=== PATIENT | female | born 1995 | race Two or more races ===

== ENCOUNTER 2023-02-08 13:18 | Inpatient (IN) | payer OTHER ==
[~2023-02-08] VITALS: Ht 160 cm; Wt 70.8 kg
[2023-02-08] MEDS ORDERED: FAMOTIDINE20 MG PO (13:36)
[2023-02-08] MEDS ORDERED: REGLAN5 MG/5 ML PO (13:36)
[2023-02-08] MEDS ORDERED: PRENATAL TABLE1 EAC4 PO (13:37)
== END 2023-02-10 12:35 | disposition home or self-care (01) | DRG 807 ==
LOC: OB/GYN 13:18 → LDR 13:18 → OB/GYN 20:24 → LDR 02-12 15:23
PROVIDERS: ADMIT Obstetrics & Gynecology; ATTEND Obstetrics & Gynecology
PROC: 10E0XZZ Delivery of Products of Conception, External Approach (ICD-10-PCS; principal; 2023-02-08)
PROC: 0UQG7ZZ Repair Vagina, Via Natural or Artificial Opening (ICD-10-PCS; 2023-02-08)
PROC: 4A1HXCZ Monitoring of Products of Conception, Cardiac Rate, External Approach (ICD-10-PCS; 2023-02-08)
DX: O71.4 Obstetric high vaginal laceration alone (principal); Z37.0 Single live birth; Z3A.38 38 weeks gestation of pregnancy; Z20.822 Contact with and (suspected) exposure to COVID-19

== ENCOUNTER 2024-08-10 09:14 | Outpatient (CLI) | payer OTHER ==
[~2024-08-10 09:14] MED LIST: FAMOTIDINE20 MG PO; PRENATAL TABLE1 EAC4 PO; REGLAN5 MG/5 ML PO
== END 2024-08-10 10:16 | disposition home or self-care (01) ==
LOC: NST 09:14
PROVIDERS: ATTEND Obstetrics & Gynecology
DX: Z34.83 Encounter for supervision of other normal pregnancy, third trimester (principal)

== ENCOUNTER 2024-09-02 13:00 | Inpatient (IN) | payer OTHER ==
[~2024-09-02] VITALS: Ht 160 cm; Wt 70.8 kg
[2024-09-10] VITALS (9 sets, daily range): BP systolic 106–138; BP diastolic 59–86
[2024-09-10] MEDS ORDERED: AMPICILLIN SODIUM 2,000 MG VIAL IV ONE (13:30)
[2024-09-10] MEDS ORDERED: OXYTOCIN 500 ML IV SCH (13:45)
[2024-09-10 14:08] LABS: HEMATOCRIT 35.8 % (36.0-45.00); HEMOGLOBIN 11.9 g/dL (12.0-15.00); MEAN CELL VOLUME 88.8 fL (80.00-100.00); MEAN CORPUSCULAR HEMOGLOBIN 29.6 pg (27.00-32.0); MEAN CORPUSCULAR HGB CONC 33.3 g/dl (32.0-36.0); PLATELET COUNT 207 K/uL (150-450); RED BLOOD COUNT 4.03 M/uL (4.00-6.00); RED CELL DISTRIBUTION WIDTH 13.4 % (11.5-14.5)
[2024-09-10] MEDS ORDERED: MORPHINE SULFATE 4 MG/ML CARTRIDGE IV STA (14:36)
[2024-09-10 14:38] LABS: INR < 0.93; PARTIAL THROMBOPLASTIN TIME 25.4 SECONDS (22.0-34.0); PROTHROMBIN TIME 10.1 SECONDS (9.0-11.5)
[2024-09-10 14:46] LABS: ALBUMIN 2.9 gm/dL (3.4-5.0); BILIRUBIN TOTAL 0.4 mg/dL (0.3-1.2); CALCIUM 9.1 mg/dL (8.5-10.1); CREATININE SERUM 0.59 mg/dL (0.55-1.02); GFR 119.68; POTASSIUM 4.07 mEq/L (3.5-5.1); TOTAL PROTEIN 6.9 gm/dL (6.4-8.2)
[2024-09-10] MEDS ORDERED: CHLORHEXIDINE GLUCONATE 120 ML BOTTLE TOP ONE ×2 (15:15→18:00)
[2024-09-10] MEDS ORDERED: OXYTOCIN 20 UNITS/1000ML RL PIGGYBAG IV ONE (15:15)
[2024-09-10] MEDS ORDERED: ERYTHROMYCIN BASE OPHT 1GM EACH TUBE OP ONE ×2 (15:15→18:00)
[2024-09-10] MEDS ORDERED: LIDOCAINE HCL 1% 10ML VIAL ONE (15:16)
[2024-09-10] MEDS ORDERED: AMPICILLIN SODIUM 1,000 MG VIAL IV SCH (17:00)
[2024-09-10] MEDS ORDERED: OXYTOCIN 1,000 ML IV SCH (17:30)
[2024-09-10] MEDS ORDERED: CHLORHEXIDINE GLUCONATE 120 ML BOTTLE TP SCH (17:30)
[2024-09-10] MEDS ORDERED: OxyCODONE HCL/APAP UD (PERCOCET) PO PRN (17:30)
[2024-09-10] MEDS ORDERED: KETOROLAC TROMETHAMINE 10 MG TABLET PO SCH (18:00)
[2024-09-10] MEDS ORDERED: LIDOCAINE HCL 1% 10ML VIAL IJ ONE (18:00)
[2024-09-11 00:27] VITALS: BP 109/69
[2024-09-11 08:22] VITALS: BP 116/77
[2024-09-11 17:26] VITALS: BP 108/70
[2024-09-11 23:57] VITALS: BP 111/74
== END 2024-09-12 13:58 | disposition home or self-care (01) | DRG 807 ==
LOC: OB/GYN 09-10 12:48 → LDR 09-10 12:48 → OB/GYN 09-10 19:55
PROVIDERS: ADMIT Obstetrics & Gynecology; ATTEND Obstetrics & Gynecology
PROC: 10E0XZZ Delivery of Products of Conception, External Approach (ICD-10-PCS; principal; 2024-09-10)
PROC: 0UQMXZZ Repair Vulva, External Approach (ICD-10-PCS; 2024-09-10)
PROC: 4A1HXCZ Monitoring of Products of Conception, Cardiac Rate, External Approach (ICD-10-PCS; 2024-09-10)
DX: O71.82 Other specified trauma to perineum and vulva (principal); O69.81X0 Labor and delivery complicated by cord around neck, without compression, not applicable or unspecified; Z37.0 Single live birth; Z3A.39 39 weeks gestation of pregnancy